=== PATIENT | female | born 1990 | race Caucasian/White ===

== ENCOUNTER 2023-10-17 18:23 | Inpatient (IN) ==
[2023-10-17] MEDS ORDERED: Lactated Ringers 1000 ml BAG 1,000 ML IV ONE (20:16)
[2023-10-17] MEDS ORDERED: Lidocaine 1% VIAL 10 MG/ML 30 ML VIAL INJ PRN (20:16)
[2023-10-17] MEDS ORDERED: Prochlorperazine 5 mg/ml 2 ml VIAL (10 mg) IV PRN (20:16)
[2023-10-17] MEDS ORDERED: Buffered Lidocaine 1% SYRIN 1 ml INTRADERM ONE (20:16)
[2023-10-17] MEDS ORDERED: Ondansetron 4 mg VIAL 2 MG/ML 2 ml VIAL IV PRN (20:20)
[2023-10-17] MEDS: miSOPROStol 100 mcg TAB PO ONE (21:48)
[2023-10-17 22:47] LABS: Urine Benzodiazepine Screen None Detected (None Detect); Urine Cannabinoids Screen None Detected (None Detect); Urine Opiates Screen None Detected (None Detect)
[2023-10-18] MEDS: miSOPROStol 100 mcg TAB PO ONE ×3 (03:14→08:13)
[2023-10-18] MEDS ORDERED: miSOPROStol 100 mcg TAB PO ONE (12:48)
[2023-10-18] MEDS: miSOPROStol 100 mcg TAB ONE ×2 (13:07→18:29)
[2023-10-19] MEDS: Lactated Ringers 1000 ml BAG 1,000 ML IV SCH (02:21)
[2023-10-19] MEDS: Oxytocin in LR 20,000 MILLI.UNIT/1,000 ML BAG IV SCH (02:21)
[2023-10-19 02:32] LABS: ABS Basophils 0.1 10^3/uL (0.0-0.1); ABS Eosinophils 0.1 10^3/uL (0.0-0.5); ABS Lymphocytes 1.9 10^3/uL (1.0-4.8); ABS Neutrophils 10.6 10^3/uL (1.5-7.6); ABS Nucleated RBC 0.01 10^3/ul; Hematocrit 39.5 % (35-45); Hemoglobin 13.8 g/dL (11.5-14.3); Lymphocyte % 13.9 %; Mean Corpuscular Hemoglobin 30.3 pg (27-33); Mean Corpuscular Hgb Conc 34.9 g/dL (31-36); Mean Corpuscular Volume 86.7 fL (80-97); Mean Platelet Volume 8.4 fL (7.5-11.2); Nucleated Red Blood Cells % 0.1 %/100WBC (0.0-0.8); Platelet Count 206 10^3/uL (150-450); Red Blood Count 4.56 10^6/uL (3.63-4.92); Red Cell Distribution Width 13.5 % (12-17); White Blood Count 13.8 10^3/uL (3.8-11.8)
[2023-10-19] MEDS ORDERED: Oxytocin 10 UNITS/ML 1 ML VIAL IM PRN (12:40)
[2023-10-19] MEDS ORDERED: Glycerin ADULT 2.4 gm SUPP PR PRN (12:40)
[2023-10-19] MEDS ORDERED: Lactated Ringers 1000 ml BAG 1,000 ML IV SCH (13:00)
[2023-10-19] MEDS: Dibucaine 1% OINT 28.35 GM TUBE PR PRN (14:00)
[2023-10-19] MEDS: Witch Hazel PAD JAR TOPICAL PRN (14:00)
[2023-10-20 07:20] LABS: ABS Basophils 0.1 10^3/uL (0.0-0.1); ABS Eosinophils 0.1 10^3/uL (0.0-0.5); ABS Lymphocytes 2.4 10^3/uL (1.0-4.8); ABS Monocytes 1.2 10^3/uL (0.0-0.9); ABS Neutrophils 17.3 10^3/uL (1.5-7.6); Eosinophil % 0.3 %; Hematocrit 35.5 % (35-45); Hemoglobin 12.1 g/dL (11.5-14.3); Lymphocyte % 11.2 %; Mean Corpuscular Hemoglobin 29.6 pg (27-33); Mean Corpuscular Hgb Conc 34.1 g/dL (31-36); Mean Corpuscular Volume 86.7 fL (80-97); Platelet Count 188 10^3/uL (150-450); Red Blood Count 4.09 10^6/uL (3.63-4.92); Red Cell Distribution Width 13.5 % (12-17)
[2023-10-21 08:29] VITALS: BP 122/71
== END 2023-10-21 14:28 | disposition home or self-care (01) | DRG 560 ==
LOC: MCHOBOUT 18:23 → MCHOB 20:15
PROVIDERS: ADMIT Advanced Practice Midwife; ATTEND Registered Nurse